=== PATIENT | male | born 1950 | race Two or more races ===

== ENCOUNTER 2024-08-12 07:35 | Emergency (ER) | payer OTHER ==
[~2024-08-12] VITALS: Ht 172.7 cm; Wt 81.6 kg
== END 2024-08-12 08:45 | disposition home or self-care (01) ==
LOC: ER 07:37
DX: S46.212A Strain of muscle, fascia and tendon of other parts of biceps, left arm, initial encounter (principal); W19.XXXA Unspecified fall, initial encounter; Y93.89 Activity, other specified; Y92.098 Other place in other non-institutional residence as the place of occurrence of the external cause; Y99.8 Other external cause status

== ENCOUNTER 2024-08-12 09:12 | Outpatient (CLI) | payer OTHER | END 2024-08-12 09:22 | disposition home or self-care (01) | LOC: SONOGRAMA 09:12 | PROVIDERS: ATTEND Internal Medicine | DX: S46.122A Laceration of muscle, fascia and tendon of long head of biceps, left arm, initial encounter (principal) ==